=== PATIENT | male | born 1955 | race Hispanic/Latino ===

== ENCOUNTER 2018-10-24 05:53 | Day surgery (SDC) | payer OTHER ==
[~2018-10-24] VITALS: Ht 172.7 cm; Wt 75.0 kg
[~2018-10-24 05:53] MED LIST: ACET325C5 PO; ASPI-555 PO; ATOR20TA65 PO; LOSA1TAB42 PO; METR500T PO; OMEP40CA37 PO; SODIUM CHLORIDE 0.9% 1000ML 1,000 ML IV ONE
[2018-10-24] MEDS ORDERED: GLYCOPYRROLATE 0.2 MG/ML 5 ML VIAL ONE (06:25)
[2018-10-24] MEDS ORDERED: PROPOFOL 10 MG/ML 20ML VIAL IV ONE (06:25)
[2018-10-24] MEDS ORDERED: LIDOCAINE HCL-MPF 2% 5ML VIAL ONE (06:25)
[2018-10-24 06:32] VITALS: BP 181/78
[2018-10-24 06:51] VITALS: BP 102/56
[2018-10-24 06:55] VITALS: BP 97/57
[2018-10-24 07:00] VITALS: BP 104/61
[2018-10-24 07:10] VITALS: BP 127/76
[2018-10-24 07:20] VITALS: BP 138/81
== END 2018-10-24 07:25 | disposition home or self-care (01) ==
LOC: ENDO 05:53 → DAH 05:53 → ENDO 07:25
PROVIDERS: ATTEND Internal Medicine
DX: Z12.11 Encounter for screening for malignant neoplasm of colon (principal); D12.4 Benign neoplasm of descending colon; D12.8 Benign neoplasm of rectum; E78.5 Hyperlipidemia, unspecified; I10 Essential (primary) hypertension; F41.9 Anxiety disorder, unspecified; Z79.899 Other long term (current) drug therapy; Z88.8 Allergy status to other drugs, medicaments and biological substances; K57.30 Diverticulosis of large intestine without perforation or abscess without bleeding; K64.0 First degree hemorrhoids
CPT/HCPCS: 45380; 88305; A4606; J2704; J3490 ×2; J7030

== ENCOUNTER 2023-03-26 06:18 | Day surgery (SDC) | payer OTHER ==
[2023-03-22 14:44] LABS: BASOPHILS % (AUTO) 0.3 % (0.0-5.0); EOSINOPHILS % (AUTO) 1.3 % (0.0-8.0); MEAN CORPUSCULAR HEMOGLOBIN 28.3 pg (27.0-33.0); MEAN CORPUSCULAR HGB CONC 33.3 g/dL (32.0-36.0); MONOCYTES % (AUTO) 9.1 % (3.0-13.0); PLATELET COUNT (AUTO) 259 K/uL (130-400); RED BLOOD CELL COUNT(AUTO) 4.59 MIL/uL (4.50-6.20); RED CELL DISTRIBUTION WIDTH 13.9 % (11.0-15.5); WHITE BLOOD COUNT (AUTO) 6.3 K/uL (4.8-10.8)
[2023-03-22 14:47] LABS: APPEARANCE,URINE CLEAR (CLEAR); BILIRUBIN,URINE NEGATIVE (NEGATIVE); COLOR,URINE LIGHT-YELLOW (YELLOW); GLUCOSE, URINE (UA) NEGATIVE (NEGATIVE); KETONES,URINE NEGATIVE (NEGATIVE); LEUKOCYTE ESTERASE ,URINE NEGATIVE Leu/uL (NEGATIVE); NITRATE,URINE NEGATIVE (NEGATIVE); OCCULT BLOOD,URINE NEGATIVE (NEGATIVE); PROTEIN,URINE NEGATIVE (NEGATIVE); UROBILINOGEN,URINE 0.2 mg/dL (0.2-1.0)
[2023-03-22 14:52] LABS: CREATININE 1.5 mg/dL (0.5-1.5); POTASSIUM 3.7 mmol/L (3.5-5.1)
[2023-03-22 14:55] LABS: INR 0.98 (0.85-1.15); PROTHROMBIN TIME 10.7 SEC (9.6-11.6)
[2023-03-22 14:56] LABS: PARTIAL THROMBOPLASTIN TIME 24.6 SEC (26.3-35.5)
[2023-03-22 15:04] VITALS: BP 169/88
[2023-03-22 15:07] LABS: B-TYPE NATRIURETIC PEPTIDE 38 pg/mL (0-100)
[~2023-03-26] VITALS: Ht 172.7 cm; Wt 84.4 kg
[2023-03-26] VITALS (11 sets, daily range): BP systolic 127–187; BP diastolic 61–82
[~2023-03-26 06:18] MED LIST changes: +0.9% NACL 500ML IV.SOLN 500 ML IV SCH; -ACET325C5 PO; +AMLO-258 PO; -ASPI-555 PO; +ASPI-556 PO; -ATOR20TA65 PO; +HYDR12.54 PO; +LOSA100T59 PO; -LOSA1TAB42 PO; +METO-408 PO; -METR500T PO; +OMEP40CA21 PO; -OMEP40CA37 PO; +ROSU10TA28 PO; -SODIUM CHLORIDE 0.9% 1000ML 1,000 ML IV ONE
[2023-03-26] MEDS ORDERED: LIDOCAINE HCL 400MG/20ML VIAL ONE (08:50)
[2023-03-26] MEDS ORDERED: FENTANYL CITRATE PF 50 MCG/1 ML 2ML VIAL ONE (08:51)
[2023-03-26] MEDS ORDERED: MIDAZOLAM HCL 1 MG/ML 2ML VIAL ONE ×3 (08:51→10:01)
[2023-03-26] MEDS ORDERED: IOHEXOL 350 MG/ML 100ML INFUS..BTL IV ONE (08:51)
[2023-03-26] MEDS ORDERED: VERAPAMIL HCL 2.5 MG/ML VIAL ONE (09:09)
[2023-03-26] MEDS ORDERED: HEPARIN 10,000 UNIT/10ML (1,000 UNIT/ML) VIAL ONE (09:09)
[2023-03-26] MEDS ORDERED: NITROGLYCERIN 50MG VIAL ONE (09:09)
[2023-03-26] MEDS ORDERED: IOHEXOL-350 50ML VIAL IV ONE ×2 (09:51→09:54)
[2023-03-26] MEDS ORDERED: 0.9%NACL 1000ML 1,000 ML IV SCH (10:30)
[2023-03-26] MEDS ORDERED: GLUCAGON 1MG KIT 1 MG ML IM PRN (10:30)
[2023-03-26] MEDS ORDERED: DEXTROSE 50%-WATER 50 ML DISP.SYRIN IV PRN (10:30)
== END 2023-03-26 16:05 | disposition home or self-care (01) ==
LOC: DAH 06:18
PROVIDERS: ATTEND Student in an Organized Health Care Education/Training Program
DX: I25.119 Atherosclerotic heart disease of native coronary artery with unspecified angina pectoris (principal); I10 Essential (primary) hypertension; E78.00 Pure hypercholesterolemia, unspecified; Z79.01 Long term (current) use of anticoagulants; Z79.899 Other long term (current) drug therapy; Z98.890 Other specified postprocedural states; Z82.49 Family history of ischemic heart disease and other diseases of the circulatory system; Z79.82 Long term (current) use of aspirin
CPT/HCPCS: 80048; 83880; 85025; 85610; 85730; 81003; 36415; 71045; 93005; 93458; C1769 ×2; C1894 ×3; C1760; J7040; J3010; J3490 ×3; J1644 ×2; J2250 ×3; Q9967 ×2; A4215; A4222; A4221; A4663; A4216; A4606; Q9965; A4223 ×3; 96360; 96361; 99156; 99157